=== PATIENT | female | born 1980 | race Caucasian/White ===

== ENCOUNTER 2017-02-21 17:00 | Inpatient (IN) | payer MEDICAID ==
[~2017-02-21] VITALS: Ht 147.3 cm; Wt 77.8 kg
[2017-02-21 18:32] LABS: CALCIUM 8.5 mg/dL (8.5-10.1); CHLORIDE SERUM 102 mmol/L (98-107); CREATININE SERUM 0.6 mg/dL (0.6-1.0); GFR1 > 60 mL/min; GLUCOSE SERUM 96 mg/dL (74-106); POTASSIUM SERUM 3.5 mmol/L (3.5-5.1); SODIUM SERUM 137 mmol/L (136-145)
[2017-02-21 18:36] LABS: BASOPHIL % 0.5 % (0-2); RED CELL DISTRIBUTION WIDTH 14.3 % (11.5-14.5)
[2017-02-21 18:37] LABS: ALBUMIN 3.6 g/dL (3.4-5.0); ALKALINE PHOSPHATASE 84 U/L (46-116); ALT/SGPT 23 U/L (14-59); AST/SGOT 17 U/L (15-37); BILIRUBIN TOTAL 0.2 mg/dL (0.20-1.00); LIPASE 89 IU/L (73-393); PLATELET COUNT 462 x10^3mcL (130-400); TOTAL PROTEIN, SERUM 7.3 g/dL (6.4-8.2)
[2017-02-21 20:26] VITALS: BP 135/80
[2017-02-21 20:50] LABS: UA SPECIFIC GRAVITY <=1.005 (1.005-1.035); microscopic required? YES; urine erythrocyte 1+ (NEGATIVE)
[2017-02-21 21:01] LABS: MAGNESIUM 1.8 mg/dL (1.8-2.4); PHOSPHOROUS 3.2 mg/dL (2.5-4.9)
[2017-02-21 21:11] LABS: CHOLESTEROL/HDL RATIO 2.8; FREE T4 1.21 ng/dL (0.76-1.46); FREE THYROXINE INDEX 3.5 ug/dL (1.4-4.5)
[2017-02-21 21:12] LABS: T3 TOTAL 1.2 ng/mL
[2017-02-22 06:15] VITALS: BP 102/69
[2017-02-22 07:45] VITALS: BP 126/60
[2017-02-22 09:00] VITALS: BP 126/60
[2017-02-22 12:37] VITALS: BP 115/77
[2017-02-22 16:50] VITALS: BP 118/84
== END 2017-02-22 18:59 | disposition left against medical advice (07) | DRG 251 ==
LOC: ED 17:00 → DU 19:40
PROVIDERS: Emergency Medicine; ADMIT Family Medicine
DX: R10.31 Right lower quadrant pain (principal); N13.30 Unspecified hydronephrosis; N80.0 Endometriosis of uterus; D25.9 Leiomyoma of uterus, unspecified; E78.5 Hyperlipidemia, unspecified; Z68.35 Body mass index [BMI] 35.0-35.9, adult
CPT/HCPCS: 82962; 84439; J3010; J7030